=== PATIENT | female | born 1945 | race Caucasian/White ===

== ENCOUNTER 2017-11-23 13:00 | Inpatient (IN) | payer MEDICARE, OTHER ==
[2017-11-29] MEDS ORDERED: ACETAMINOPHEN 1,000 MG/100 ML BTL IV ONE (06:00)
[2017-11-29] MEDS ORDERED: METOCLOPRAMIDE 10 MG TABLET PO ONE (06:00)
[2017-11-29] MEDS ORDERED: FAMOTIDINE 20MG TABLET PO ONE (06:00)
[2017-11-29] MEDS ORDERED: MECLIZINE 25 MG TABLET PO ONE (06:00)
[2017-11-29] MEDS ORDERED: VANCOMYCIN HCL 1,000 MG in DEXTROSE 5 % IN WATER 250 ML IVPB ONE ×2 (06:00)
[2017-11-29 07:08] LABS: ABO GROUP O; RH TYPE NEGATIVE
[2017-11-29 07:09] LABS: ANTIBODY SCREEN NEGATIVE (NEGATIVE)
[2017-11-29] MEDS ORDERED: ACETAMINOPHEN W/ CODEINE 300MG/60MG TABLET PO PRN ×2 (08:34)
[2017-11-29] MEDS ORDERED: HYDROCODONE/APAP 7.5/325MG TABLET PO PRN (08:34)
[2017-11-29] MEDS ORDERED: ACETAMINOPHEN 325 MG TAB PO PRN (08:34)
[2017-11-29] MEDS ORDERED: NALOXONE 0.4 MG/1 ML VIAL IVP PRN (08:34)
[2017-11-29] MEDS ORDERED: KETOROLAC 30 MG/ML VIAL IVP PRN ×2 (08:34)
[2017-11-29] MEDS ORDERED: DIPHENHYDRAMINE HCL 25 MG CAPSULE PO PRN (08:34)
[2017-11-29] MEDS ORDERED: HYDROMORPHONE HCL 2 MG/ML VIAL IM PRN ×2 (08:34)
[2017-11-29] MEDS ORDERED: ONDANSETRON HCL IV 4 MG/2 ML VIAL IVP PRN (08:34)
[2017-11-29] MEDS ORDERED: BISACODYL 10 MG SUPP RC PRN (08:34)
[2017-11-29] MEDS ORDERED: ACETAMINOPHEN W/ CODEINE 300MG/30MG TABLET PO PRN ×2 (08:34)
[2017-11-29] MEDS ORDERED: PROMETHAZINE HCL 12.5 MG in 0.9 % SODIUM CHLORIDE 100ML 50 ML IVPB PRN (08:34)
[2017-11-29] MEDS ORDERED: ZOLPIDEM TARTRATE 5 MG TABLET PO PRN (08:34)
[2017-11-29] MEDS ORDERED: HYDROCODONE/APAP 5/325MG TABLET PO PRN ×2 (08:34)
[2017-11-29] MEDS ORDERED: AL HYDROX/MAG HYDROX 30ML UD PO PRN (08:34)
[2017-11-29] MEDS ORDERED: TRAMADOL HCL 50 MG TABLET PO PRN ×2 (08:34)
[2017-11-29] MEDS ORDERED: MAGNESIUM HYDROXIDE 30 ML UDC PO PRN (08:34)
[2017-11-29] MEDS ORDERED: METOCLOPRAMIDE HCL 10 MG/2 ML VIAL IVP PRN (08:34)
[2017-11-29] MEDS ORDERED: FERROUS SULFATE 325 MG TAB PO SCH (10:00)
[2017-11-29] MEDS ORDERED: DOCUSATE SODIUM 100 MG CAPSULE PO SCH (10:00)
[2017-11-29] MEDS ORDERED: BUPIVACAINE 0.5% W/EPI MPF 30 ML VIAL IVP ONE (11:19)
[2017-11-29] MEDS ORDERED: TRANEXAMIC ACID 1,000 MG/10 ML ML IV ONE (11:19)
[2017-11-29] MEDS: DEXTROSE 5 % AND 0.9 % NACL 1,000 ML IV PRN ×2 (11:32→19:39)
[2017-11-29] MEDS ORDERED: KETOROLAC 30 MG/ML VIAL IVP ONE (13:26)
[2017-11-29] MEDS ORDERED: EPHEDRINE SULFATE 50 MG/ML ML IV ONE (14:00)
[2017-11-29] MEDS ORDERED: **ER** KETAMINE HCL 500MG/10ML VIAL IV ONE (14:00)
[2017-11-29] MEDS ORDERED: MIDAZOLAM HCL 2MG/2ML VIAL IV ONE (14:00)
[2017-11-29] MEDS ORDERED: PROPOFOL 10 MG/ML VIAL IV ONE (14:00)
--- NOTE | 2017-11-29 15:50 | Rehab Evaluation ---
Patient Information - Patient Information Diagnosis: OA R hip Ordered Treatment: PT Evaluate and Treat Status: Initial Evaluation Surgery: Yes (THR) Date of Surgery: 11/29/17 Past Medical/Surgical Hx: PAST MEDICAL/SURGICAL HISTORY Past Surgical History appy breast lumpectomy hyst wrist RTKA PMH - Respiratory Hx Respiratory Disorders Yes Hx Pneumonia Yes: 30 yrs ago while on life support for 3.5 weeks related to poss virus PMH - Cardiovascular Hx Cardiovascular Disorders Yes Hx Abnormal EKG Yes Hx Congestive Heart Failure Yes Hx Hypertension Yes: on meds with good control Exercise Tolerance Fair Comment: hx cardiomyopathy 30 yrs ago viral related possibly PMH - Neuro Hx Neurological Disorders Yes Hx Dizziness Yes: vertigo x's 1 15 yrs ago PMH - GI Hx Gastrointestinal Disorders No PMH - Hx Genitourinary Disorders Yes Hx Bladder Problem Yes: dribbling wears a pad Comment: s/p hyst PMH - Endocrine Hx Endocrine Disorders No PMH - Musculoskeletal Hx Musculoskeletal Disorders Yes Hx Arthritis Yes: OA Hx Osteoporosis Yes: lumbar PMH - Psych Hx Psychiatric Problems Yes Hx Anxiety Yes Hx Depression Yes PMH - Hematology/Oncology Hx Hematology/Oncology Yes Disorders Hx Anemia Yes: iron infusion in July Hx Cancer Yes: BCC on back Hx Blood Transfusion Reaction No Premorbid Status: Detail (Prior to surgery the patient was independent with all mobility.) Social History: Detail (The patient lives alone in a two story house wit one step and one hand rail at the porch enterance and two steps at the garage enterance with a handrail. The patient's bathroom is equipped with a tub/shower combination with grab bars and a hand held shower and a toilet seat with riser .The patient has a 4 wheeled walker with a seat , a two wheeled walker and a standard cane.) Precautions: [place], Fall, Other (Total hip replacement precautions.) - Time With Patient Total Time Spent With Patient (Min): 30 Treatment Procedures: Detail (Initial Evaluation, gait training) Subjective Information - Subjective Information Per Patient (The patient had complaints of level 4 pain in R hip.) Objective Data - Mental Status Patient Orientation: Oriented x3 - Visual Perception Appears within normal limits for therapeutic activities - ROM Not within normal limits (The patient's R hip AROM is limited within THR precautions.) - Strength/Tone Not within normal limits (The patient's R LE strength was not tested s/p surgery however is functional ie: patient was independent with lifting leg during bed mobility.) - Bed Mobility Independent (Independent with supine to and from sit.) - Transfers Independent (Independent with sit to and from stand with occasional verbal cues for proper technique.) - Balance Balance Sitting: Good Balance Standing: Good - Sensation Intact - Gait Detail (The patient ambulated to bathroom with two wheeled walker WBAT on the R LE a distance of 10 feet x 1 and 52 feet x 1 with supervision for safety only.) Therapy Assessment - Therapy Assessment Detail (The patient was independent with bed mobility, transfers and ambulation. Feel patient will progress well with mobility.) Patient Education - Patient Education Teaching Topic: Precautions (The patient recalled not crossing her legs and required verbal cues to recall maintaining hip at 90 degrees and no hip rotation.) Problem List - Problem List Physical Therapy Problem List: Detail (1) Decreased R LE strength 2) Nonambulatory on stairs) Goals - Goals Physical Therapy Goals: 1) The patient will be independent with HEP of THR exercises and recognize and follow THR precautions. 2) The patient will ambulated on stairs using proper technique with supervision for safety. Prognosis - Prognosis Good Plan - Plan Physical Therapy Plan: PT 1-2 visits for gait training on stairs and instruction in HEP.
[2017-11-29] MEDS: HYDROCODONE/APAP 7.5/325MG TABLET PO PRN ×3 (16:28→22:24)
--- NOTE | 2017-11-29 19:28 | Operative Note ---
DATE: 11/29/2017. PREOPERATIVE DIAGNOSIS: ENDSTAGE RIGHT HIP ARTHROSIS. POSTOPERATIVE DIAGNOSIS: ENDSTAGE RIGHT HIP ARTHROSIS. PROCEDURE: Right total hip arthroplasty. SURGEON: Joe Yates M.D. ANESTHESIA: Spinal. Queenie Sandoval CRNA. COMPLICATIONS: None. BLOOD LOSS: 200 mL. OPERATIVE FINDINGS: Severe [id number] hip arthrosis. COMPONENTS PLACED: A [employer] total hip arthroplasty system, synergy cemented stem size 15 high offset with collar with a 32 + 0 mm Oxinium femoral head component, a 3-hole Reflexion acetabular shell component with two screw caps, a centrally threaded screw cap, a 40 mm acetabular screw, and a high crosslinked 35-degree hooded polyethylene liner. INDICATIONS FOR OPERATION: This is a 72-year-old female who is well known to myself. She has had bad hip arthrosis for several years. She has failed nonoperative treatment and scheduled for a hip replacement. I explained the risks and benefits of surgery in detail for diagnosis and procedures. These include but are not limited to, infection, nerve injury, vessel injury, persistent pain and numbness tingling in her hip, periprosthetic fracture, need for resection arthroplasty, the fact that components can loosen, injury to nerves and vessels, blood clot, leg length discrepancy, the need for anticoagulation to prevent blood clots, and the risks associated with his medications, and the need for further procedures. All of her questions were answered. The treatment and course were outlined, and she agreed to proceed. PROCEDURE: The patient was brought to the operating room and placed in the right lateral decubitus position. Her right hip and lower extremity were prepped and draped in sterile fashion. Prepped with ChloraPrep and draped. Intraoperative time out was performed. Next, a posterior approach was marked over the hip using an incision-marking template. It was infiltrated with 0.5% Marcaine with epinephrine. The skin and subcutaneous tissue was dissected down to the gluteal fascia. The gluteal fascia was split longitudinally and the subgluteal plane was bluntly dissected. We then brought in the self retainers. Identified the sciatic nerve and were careful to protect it at all times. We took short external rotators and we incised the capsule longitudinally along the femoral neck medially and laterally and released it. We then dislocated the femoral head. There was severely arthritic, deformed, sclerotic bone. There was no normal articular cartilage. We cut it about 1.5 cm above the lesser trochanter, and it was soft. We checked the soft tissues. Next, we inserted the box osteotome. Next, we inserted the reamers and reamed by hand, first with an 8.0 mm reamer and then working up in 1.0 mm increments until we reamed up to a size 53 mm. We tried a 54 shell, and this fit nicely. Next, we started broaching and reamed a size 15. We then started broaching with 13 in 15 degrees of anteversion, with a calcar plane at 15 and had a nice fit. We stopped there. Next, attention was turned to the acetabulum. We placed the inferior acetabular retractor, anterior femoral retractor after loosening the capsule. I exposed the acetabulum nicely and removed some of the labrum and capsule around the periphery. Next we started reaming in 1.0 mm increments working with the 44 mm reamer up to a size 53 mm reamer in 20 degrees of anteversion and 40 degrees of inclination until we had a good fit. We then trialed a size 54-mm shell and had a good fit down medially. Next, I changed gloves and irrigated copiously. I then inserted the real acetabular shell with the helicopter guide at 45 degrees inclination and 20 degrees of anteversion. We then drilled a posterior central superior quadrant screw hole to 40 mm and had a good purchase. I then placed a trial liner and did a trial reduction. Best combination of range of motion and stability and leg lengths was with a high-offset 15-mm stem with a 32 + 0 mm head. This allowed for good abductor tension without overstuffing. Had good stability with extension and external rotation and good stability with flexion and internal rotation without hip dislocation. We had symmetric leg lengths. Next, we removed all of the trial components and irrigated the acetabular shell and acetabulum copiously. I inserted the two screw caps and the centrally threaded screw cap and packed down the real highly crosslinked 35-degree hooded liner with the santos in the posterosuperior quadrant. Packed it and verified it was interlocked. Irrigated the femoral canal copiously and placed the cement restricter distally and injected the cement with third-generation cement technique through the suction catheter. I then inserted the real femoral stem until the collar was flush with the medial calcar, again in 15 degrees of anteversion and held it there until the cement hardened. Next I cleaned and dried the trunnion and impacted down the real femoral head. I re-reduced the hip and found that range of motion felt the same. We irrigated copiously and closed the gluteal fascia with running #2 Quill suture. Closed the skin deep with #2-0 Vicryl. Sterile dressing with Acticoat and provisional dressing was applied. It will be changed to a ZEFERINO dressing prior to discharge tomorrow. JOB NUMBER: [id number] cc: Lalo Hogan M.D. MTDMurphy
[2017-11-29] MEDS: VANCOMYCIN HCL 1,000 MG in DEXTROSE 5 % IN WATER 250 ML IVPB SCH ×2 (19:39)
[2017-11-29] MEDS ORDERED: PATIENT OWN MED: AMLODIPINE 5 MG PO SCH (22:00)
[2017-11-29] MEDS ORDERED: MELATONIN 5 MG TABLET PO SCH (22:00)
[2017-11-29] MEDS: FERROUS SULFATE 325 MG TAB PO SCH (22:19)
[2017-11-29] MEDS: OXYBUTYNIN CHLORIDE 5MG TABLET PO SCH (22:19)
[2017-11-29] MEDS: DOCUSATE SODIUM 100 MG CAPSULE PO SCH (22:19)
[2017-11-30] MEDS: HYDROCODONE/APAP 7.5/325MG TABLET PO PRN ×3 (02:32→07:58)
[2017-11-30] MEDS: DEXTROSE 5 % AND 0.9 % NACL 1,000 ML IV PRN (03:39)
[2017-11-30] MEDS: VANCOMYCIN HCL 1,000 MG in DEXTROSE 5 % IN WATER 250 ML IVPB SCH ×2 (06:35)
[2017-11-30 06:55] LABS: HEMATOCRIT 33.5 % (35.0-47.0); HEMOGLOBIN 10.4 gm/dl (11.6-16.0)
--- NOTE | 2017-11-30 08:26 | RADIOLOGY REPORT ---
EXAM: RIGHT HIP HISTORY: POSTOP RIGHT CLAUS. TECHNIQUE: A single AP view of the right hip was obtained. Comparison: None. FINDINGS: Postop right CLAUS. The components appear in good position with no dislocation evident in the AP view. Some air is seen in the soft tissues which is presumably postoperative in nature. IMPRESSION: POSTOP RIGHT CLAUS. THE COMPONENTS APPEAR IN GOOD POSITION IN THE AP PROJECTION. JOB NUMBER: [id number] MTDD
[2017-11-30] MEDS ORDERED: CELECOXIB 100 MG CAPSULE PO SCH (10:00)
[2017-11-30] MEDS ORDERED: CITALOPRAM 20 MG TABLET PO SCH (10:00)
[2017-11-30] MEDS ORDERED: LOSARTAN PO SCH (10:00)
[2017-11-30] MEDS ORDERED: RIVAROXABAN 10 MG TABLET PO SCH (10:00)
[2017-11-30] MEDS ORDERED: HCTZ PO SCH (10:00)
[2017-11-30] MEDS: OXYBUTYNIN CHLORIDE 5MG TABLET PO SCH (10:01)
[2017-11-30] MEDS: DOCUSATE SODIUM 100 MG CAPSULE PO SCH (10:01)
[2017-11-30] MEDS: FERROUS SULFATE 325 MG TAB PO SCH (10:01)
--- NOTE | 2017-11-30 11:45 | Physical Therapy Tx Note ---
Physical Therapy Tx Note - Treatment Note Tolerated: Good Total Time Spent With Patient: 25 Physical Therapy Tx Note: Detail (The patient ambulated independently with 2 wheeled walker a distance of 50 feet x 1 WBAT on the R LE. The patient ambulated on 3 steps with the use of one cane and one railing with supervision for safety using proper technique. The patient completed HEP of THR exercises including: hip abduction, heel slides, gluteal sets, quad sets, hamstring sets and ankle pumps. The patient demonstrated good understanding of THR precautions. The patient has met all inpatient goals and is discharged from inpatient PT.) Physical Therapy Problem List: Detail (1) Decreased R LE strength 2) Nonambulatory on stairs) Physical Therapy Goals: 1) The patient will be independent with HEP of THR exercises and recognize and follow THR precautions. (Goal Met). 2) The patient will ambulated on stairs using proper technique with supervision for safety. ( Goal Met) Physical Therapy Plan: The patient has met all inpatient PT goals. The patient is to continue with Home PT.
--- NOTE | 2017-11-30 11:58 | Rehab Evaluation ---
Patient Information - Patient Information Diagnosis: OA R hip Ordered Treatment: OT Evaluate and Treat Status: Initial Evaluation Surgery: Yes (THR) Date of Surgery: 11/29/17 Past Medical/Surgical Hx: PAST MEDICAL/SURGICAL HISTORY Past Surgical History appy breast lumpectomy hyst wrist RTKA PMH - Respiratory Hx Respiratory Disorders Yes Hx Pneumonia Yes: 30 yrs ago while on life support for 3.5 weeks related to poss virus PMH - Cardiovascular Hx Cardiovascular Disorders Yes Hx Abnormal EKG Yes Hx Congestive Heart Failure Yes Hx Hypertension Yes: on meds with good control Exercise Tolerance Fair Comment: hx cardiomyopathy 30 yrs ago viral related possibly PMH - Neuro Hx Neurological Disorders Yes Hx Dizziness Yes: vertigo x's 1 15 yrs ago PMH - GI Hx Gastrointestinal Disorders No PMH - Hx Genitourinary Disorders Yes Hx Bladder Problem Yes: dribbling wears a pad Comment: s/p hyst PMH - Endocrine Hx Endocrine Disorders No PMH - Musculoskeletal Hx Musculoskeletal Disorders Yes Hx Arthritis Yes: OA Hx Osteoporosis Yes: lumbar PMH - Psych Hx Psychiatric Problems Yes Hx Anxiety Yes Hx Depression Yes PMH - Hematology/Oncology Hx Hematology/Oncology Yes Disorders Hx Anemia Yes: iron infusion in July Hx Cancer Yes: BCC on back Hx Blood Transfusion Reaction No Premorbid Status: Detail (Prior to surgery the patient was independent with all mobility. Pt is Ind with all ADLs and IADLs. Her niece will be staying with her for a week after discharge.) Social History: Detail (The patient lives alone in a two story house with one step and one hand rail at the porch entrance and two steps at the garage entrance with a handrail. The patient's bathroom is equipped with a tub/shower combination with grab bars, shower bench and a hand held shower and a toilet seat with riser .The patient has a 4 wheeled walker with a seat , a two wheeled walker, inspector and hand packager, long shoe horn and a standard cane.) Precautions: [place], Fall, Other (Total hip replacement precautions.) - Time With Patient Total Time Spent With Patient (Min): 50 Treatment Procedures: Detail (OT eval low complexity) Subjective Information - Subjective Information Per Patient Objective Data - Pain Pain Present: Yes (06/24) - Mental Status Patient Orientation: Oriented x3 - Visual Perception Appears within normal limits for therapeutic activities - ROM Within normal limits (Oskar UE AROM WNL) - Strength/Tone Within normal limits (Oskar UE strength WNL) - Coordination Appears within normal limits for therapeutic activities - Bed Mobility Independent (Ind with supine to sit and sit to supine) - Transfers Independent (Ind with sit to stand from EOB and commode.) - Balance Balance Sitting: Good Balance Standing: Good - Sensation Intact - Gait Detail (Pt ambulating in room and hallway with 2 wheeled walker Indly.) - ADL's/IADL's Detail (Pt educated re: total hip precautions and modified LE dressing techniques using adaptive equipment. Pt able to use inspector and hand packager to doff slippers and don pants, she required min assist to don slip on shoes due to right foot edema. Pt reports she is comfortable with the technique and has larger shoes at home if needed. Reviewed kitchen and bathroom safety and modications including tub transfer, pt able to verbalize understanding.) Therapy Assessment - Therapy Assessment Detail (Pt is safe and Ind with modified LE dressing techniques using adaptive equipment.) Problem List - Problem List Physical Therapy Problem List: Detail (1) Decreased R LE strength 2) Nonambulatory on stairs) Occupational Therapy Problem List: Detail (No current IP OT problems identified. ) Goals - Goals Physical Therapy Goals: 1) The patient will be independent with HEP of THR exercises and recognize and follow THR precautions. (Goal Met). 2) The patient will ambulated on stairs using proper technique with supervision for safety. ( Goal Met) Occupational Therapy Goals: No current IP OT goals identified. Prognosis - Prognosis Good Plan - Plan Physical Therapy Plan: The patient has met all inpatient PT goals. The patient is to continue with Home PT. Occupational Therapy Plan: No further IP OT recommended. Thank you for this referral.
== END 2017-11-30 17:20 | disposition home or self-care (01) | DRG 470 ==
LOC: MEDSURG 11-29 06:09
PROVIDERS: ADMIT Orthopaedic Surgery; ATTEND Orthopaedic Surgery
PROC: 0SR9069 Replacement of Right Hip Joint with Oxidized Zirconium on Polyethylene Synthetic Substitute, Cemented, Open Approach (ICD-10-PCS; principal; 2017-11-29 08:00)
DX: M16.11 Unilateral primary osteoarthritis, right hip (principal); I10 Essential (primary) hypertension; E78.00 Pure hypercholesterolemia, unspecified
CPT/HCPCS: 85014; 85018; 86850; 86900; 86901; 97110; C1776; J1885; J7042; J7060